=== PATIENT | female | born 1995 | race Caucasian/White ===

== ENCOUNTER 2021-05-21 11:20 | Emergency (ER) | payer OTHER ==
[~2021-05-21 11:20] MED LIST: AZITHROMYCIN500 MG PO; IBUPROFEN800 MG PO; LODINE CAP 300300 MG PO; ONDANSETRON ODT4 MG SL; TAMIFLU75 MG PO
[2021-05-21 12:39] LABS: HEMOGLOBIN 12.7 gm/dl (12.3-15.3); RED BLOOD COUNT 4.2 M/UL (4.00-5.10); WHITE BLOOD COUNT 10.9 K/UL (4.5-11.0)
[2021-05-21 12:54] LABS: BUN/CREATININE RATIO 6 (0-10)
[2021-05-21] MEDS ORDERED: IBUPROFEN600 MG PO (14:35)
[2021-05-21] MEDS ORDERED: PREDNISONE20 MG PO (14:35)
== END 2021-05-21 15:20 | disposition home or self-care (01) ==
LOC: ER1 11:20
PROVIDERS: Nurse Practitioner
DX: U07.1 COVID-19 (principal); Z88.0 Allergy status to penicillin; J02.9 Acute pharyngitis, unspecified
CPT/HCPCS: 71045; 80048; 81001; 83605; 85025; 85652; 86403; 87081; 87086; 87880; 93005; 96374; 99283; J1100; J7030